=== PATIENT | female | born 1940 | race Caucasian/White ===

== ENCOUNTER 2016-10-25 10:53 | Emergency (ER) | payer OTHER ==
[~2016-10-25] VITALS: Ht 154.9 cm; Wt 68.2 kg
[~2016-10-25 10:53] MED LIST: ACETAMINOPHEN-1 EAC1 PO; ALPRAZOLAM0.25 M2 PO; ALPRAZOLAM0.25 MG PO; AMITRIPTYLINE H75 MG PO; AMITRIPTYLINE100 MG PO; ASPIR-LOW81 MG PO; Antivert PO; Ascorbic Acid,Ester- PO; COUMADIN3 M1 PO; Elavil PO; Folvite PO; GEODON20 MG PO; LOPRESSOR12.5 MG PO; LYRICA50 MG PO; MULTIVITAMIN1 EAC1 PO; Oyst-Cal D, Oscal W/ PO; PRAVACHOL40 MG PO; PRILOSEC20 MG PO; PRINIVIL10 MG PO; PROTONIX40 MG PO; SENOKOT S,PE1 TABLET PO; Skelaxin PO; THERAGRAN1 TABLET PO; Tylenol Regular Stre PO; ZESTRIL,PRINIVI10 M1 PO
[2016-10-25 14:51] LABS: POINT-OF-CARE METER ID UU13113778
[2016-10-25 16:13] LABS: HEMATOCRIT 30.8 % (36.0-46.0); MCH 22.6 PG (29.0-34.0); MCHC 30.5 G/DL (30.0-36.0); MEAN PLAT.VOLUME 8.4 uM^3 (9.5-12.4); PLATELET COUNT 305 K/uL (156-360); RBC DIS.WIDTH-CV 17.9 % (11.8-14.6); RBC DIS.WIDTH-SD 46.7 % (39-53); RED BLOOD COUNT 4.16 M/uL (3.80-5.20); WHITE BLOOD COUNT 13.6 K/uL (4.1-10.2)
[2016-10-25 16:22] LABS: CHLORIDE 111 mEq/L (99-109); POTASSIUM 3.7 mEq/L (3.7-5.4); SODIUM 141 mEq/L (136-147)
[2016-10-25 16:24] LABS: GLUCOSE 105 mg/dL (70-99)
[2016-10-25 16:25] LABS: ANION GAP 8 MEQ/L (2-14)
[2016-10-25 16:26] LABS: TOTAL BILIRUBIN 0.3 mg/dL (0.0-1.0)
[2016-10-25 16:27] LABS: ALKALINE PHOSPHATASE 88 IU/L (3-129)
[2016-10-25 16:28] LABS: GFR ESTIMATE (CALCULATED) > 59 mL/min/
[2016-10-25 16:29] LABS: UREA NITROGEN (BUN) 14 mg/dL (9-23)
[2016-10-25 16:34] LABS: TROP-I INTERPRETATION NEGATIVE; TROPONIN-I < 0.01 ng/mL (0.0-0.30)
[2016-10-25 16:57] LABS: BASOPHIL COUNT 0.1 K/uL (0-0.1); EOSINOPHIL (%) 0.8 % (0-5); EOSINOPHIL COUNT 0.1 K/uL (0-0.3); HEMATOLOGY COMMENT 1 SMEAR COMPATIBLE; IMMATURE GRANULOCYTE (%) 1.5 % (0.0-0.7); LYMPHOCYTE COUNT 1.4 K/uL (1.0-2.8); NEUTROPHIL (%) 79.7 % (45-76); NEUTROPHIL COUNT 10.9 K/uL (1.8-6.4); USER ID WCD
[2016-10-25] MEDS ORDERED: MOTRIN600 MG PO (17:52)
[2016-10-25] MEDS ORDERED: ULTRAM50 MG PO (17:52)
[2016-10-25 18:07] VITALS: BP 130/72
== END 2016-10-25 18:09 | disposition home or self-care (01) ==
LOC: EME 10:53
PROVIDERS: Emergency Medicine
DX: S80.02XA Contusion of left knee, initial encounter (principal); S00.83XA Contusion of other part of head, initial encounter; W01.198A Fall on same level from slipping, tripping and stumbling with subsequent striking against other object, initial encounter; Y92.009 Unspecified place in unspecified non-institutional (private) residence as the place of occurrence of the external cause; E78.5 Hyperlipidemia, unspecified; I10 Essential (primary) hypertension
CPT/HCPCS: 70450; 70486; 72125; 73564; 80053; 81003; 82948; 84484; 85025; 93005; 99281; 99285; J2405; J7030

== ENCOUNTER 2016-12-19 18:20 | Inpatient (IN) | payer OTHER ==
[~2016-12-19] VITALS: Ht 154.9 cm; Wt 70.5 kg
[~2016-12-19 18:20] MED LIST changes: +MOTRIN600 MG PO; +ULTRAM50 MG PO
[2016-12-19 19:50] LABS: HEMATOCRIT 24.3 % (36.0-46.0); MCHC 31.7 G/DL (30.0-36.0); MCV 72.5 FL (83-99); MEAN PLAT.VOLUME 8.7 uM^3 (9.5-12.4); NRBC (%) 0.3 /100 WBC (0-0); PLATELET COUNT 402 K/uL (156-360); RBC DIS.WIDTH-CV 19.5 % (11.8-14.6); RBC DIS.WIDTH-SD 49.9 % (39-53); RED BLOOD COUNT 3.35 M/uL (3.80-5.20); WHITE BLOOD COUNT 14.2 K/uL (4.1-10.2)
[2016-12-19 19:55] LABS: CHLORIDE 102 mEq/L (99-109); POTASSIUM 4.8 mEq/L (3.7-5.4); SODIUM 129 mEq/L (136-147)
[2016-12-19 19:56] LABS: GLUCOSE 111 mg/dL (70-99)
[2016-12-19 19:57] LABS: TROP-I INTERPRETATION NEGATIVE; TROPONIN-I < 0.01 ng/mL (0.0-0.30)
[2016-12-19 19:58] LABS: ANION GAP 10 MEQ/L (2-14)
[2016-12-19 20:00] LABS: GFR ESTIMATE (CALCULATED) 46 mL/min/
[2016-12-19 20:01] LABS: UREA NITROGEN (BUN) 24 mg/dL (9-23)
[2016-12-19 21:14] LABS: TOTAL BILIRUBIN 0.7 mg/dL (0.0-1.0)
[2016-12-19 21:15] LABS: ALKALINE PHOSPHATASE 83 IU/L (3-129)
[2016-12-19 21:17] LABS: DIRECT BILIRUBIN 0.2 mg/dL (0.0-0.3)
[2016-12-19 23:11] LABS: ADD MIUA? NO; BILIRUBIN NEGATIVE; BLOOD NEGATIVE; COLOR STRAW ((YELLOW)); GLUCOSE (STRIP) NEGATIVE; KETONES NEGATIVE; LEUKOCYTES NEGATIVE; NITRITE NEGATIVE; PROTEIN (STRIP) NEGATIVE; SPECIFIC GRAVITY 1.006 (1.000-1.030); UROBILINOGEN 0.2 MG/DL (0.2-1.0)
[2016-12-20] VITALS (11 sets, daily range): BP systolic 105–141; BP diastolic 51–69
[2016-12-20 10:06] LABS: MCH 24.4 PG (29.0-34.0); MCHC 31.8 G/DL (30.0-36.0); MEAN PLAT.VOLUME 8.4 uM^3 (9.5-12.4); NRBC (%) 0.2 /100 WBC (0-0); PLATELET COUNT 284 K/uL (156-360); RBC DIS.WIDTH-CV 19.5 % (11.8-14.6); RBC DIS.WIDTH-SD 53.1 % (39-53); WHITE BLOOD COUNT 13.9 K/uL (4.1-10.2)
[2016-12-20 10:16] LABS: MCV 76.7 FL (83-99)
[2016-12-20 10:27] LABS: TROP-I INTERPRETATION NEGATIVE; TROPONIN-I 0.01 ng/mL (0.0-0.30)
[2016-12-20 10:36] LABS: ANION GAP 12 MEQ/L (2-14); CHLORIDE 101 MEQ/L (99-109); GFR ESTIMATE (CALCULATED) > 59 mL/min/; GLUCOSE 145 mg/dL (70-99); POTASSIUM 3.6 MEQ/L (3.7-5.4); SAMPLE HEMOLYSIS CHECK 0; SAMPLE ICTERIC CHECK 0; SAMPLE LIPEMIA CHECK 0; SODIUM 133 MEQ/L (136-147); UREA NITROGEN (BUN) 23 mg/dL (9-23)
[2016-12-20 10:39] LABS: IRON 130 MCG/DL (35-150)
[2016-12-20 10:40] LABS: FERRITIN 53 NG/ML (10-291)
[2016-12-20] MEDS ORDERED: XANAX0.25 MG PO (11:06)
[2016-12-20] MEDS ORDERED: BACTRIM,SEPT1 TABLET PO (11:07)
[2016-12-20] MEDS ORDERED: AMITRIPTYLINE100 MG PO (11:08)
[2016-12-20] MEDS ORDERED: OMEPRAZOLE20 MG PO (11:08)
[2016-12-20] MEDS ORDERED: PRAVASTATIN SOD20 MG PO (11:08)
[2016-12-20] MEDS ORDERED: ASPIR 8181 M1 PO (11:09)
[2016-12-20] MEDS ORDERED: ZIPRASIDONE HCL20 MG PO (11:09)
[2016-12-20] MEDS ORDERED: PRAVASTATIN SOD40 MG PO ×2 (13:08→16:13)
[2016-12-20 15:19] LABS: TROP-I INTERPRETATION NEGATIVE; TROPONIN-I 0.01 ng/mL (0.0-0.30)
[2016-12-20] MEDS ORDERED: METOPROLOL SUCC25 MG PO (16:13)
[2016-12-20 21:01] LABS: HEMATOCRIT 34.8 % (36.0-46.0)
[2016-12-21] VITALS (7 sets, daily range): BP systolic 117–141; BP diastolic 60–88
[2016-12-21 06:06] LABS: MCH 24.7 PG (29.0-34.0); MCHC 31.7 G/DL (30.0-36.0); MCV 77.8 FL (83-99); MEAN PLAT.VOLUME 8.1 uM^3 (9.5-12.4); NRBC (%) 0.3 /100 WBC (0-0); PLATELET COUNT 276 K/uL (156-360); RBC DIS.WIDTH-CV 19.6 % (11.8-14.6); RBC DIS.WIDTH-SD 53.4 % (39-53)
[2016-12-21 06:55] LABS: ANION GAP 10 MEQ/L (2-14); CHLORIDE 101 MEQ/L (99-109); GFR ESTIMATE (CALCULATED) > 59 mL/min/; SAMPLE HEMOLYSIS CHECK 0; SAMPLE ICTERIC CHECK 0; SAMPLE LIPEMIA CHECK 0; SODIUM 133 MEQ/L (136-147); UREA NITROGEN (BUN) 20 mg/dL (9-23)
[2016-12-21 07:04] LABS: GLUCOSE 97 mg/dL (70-99); POTASSIUM 4.5 MEQ/L (3.7-5.4)
[2016-12-21 07:18] LABS: ABS NEUTROPHIL COUNT 9.2; ANISOCYTOSIS 2+; BAND NEUTROPHILS 1.7 % (0-8.0); BASOPHILS 1.7 %; EOSINOPHIL ABS CT 0; INSTRUMENT ABS NEUTROPHIL CT 7.7 K/uL; LYMPHOCYTES 9.6 % (15.0-45.0); MACROCYTES 1+; METAMYELOCYTES 1.7 %; MICROCYTOSIS 1+; OVALOCYTES 1+; PLAT.SUFFICIENCY ADEQUATE; POIKILOCYTOSIS 1+; SEG.NEUTROPHILS 81.8 % (46.0-76.0); SPHEROCYTES 1+
[2016-12-22 06:58] LABS: HEMATOCRIT 33.8 % (36.0-46.0); MCH 24.6 PG (29.0-34.0); MCHC 31.1 G/DL (30.0-36.0); MCV 79.2 FL (83-99); MEAN PLAT.VOLUME 8.2 uM^3 (9.5-12.4); NRBC (%) 0.3 /100 WBC (0-0); PLATELET COUNT 280 K/uL (156-360); RBC DIS.WIDTH-SD 55.6 % (39-53); RED BLOOD COUNT 4.27 M/uL (3.80-5.20); WHITE BLOOD COUNT 9.3 K/uL (4.1-10.2)
[2016-12-22 07:10] LABS: ANION GAP 7 MEQ/L (2-14); CHLORIDE 104 MEQ/L (99-109); GFR ESTIMATE (CALCULATED) > 59 mL/min/; GLUCOSE 116 mg/dL (70-99); POTASSIUM 4.6 MEQ/L (3.7-5.4); SAMPLE HEMOLYSIS CHECK 0; SAMPLE ICTERIC CHECK 0; SAMPLE LIPEMIA CHECK 0; SODIUM 136 MEQ/L (136-147); UREA NITROGEN (BUN) 16 mg/dL (9-23)
[2016-12-22 08:19] LABS: ABS NEUTROPHIL COUNT 7.2; EOSINOPHIL ABS CT 0; INSTRUMENT ABS NEUTROPHIL CT 6.1 K/uL
[2016-12-22 08:43] VITALS: BP 130/89
[2016-12-22 12:04] VITALS: BP 147/65
[2016-12-22 16:44] VITALS: BP 111/62
[2016-12-22 20:35] VITALS: BP 117/67
[2016-12-22 23:36] VITALS: BP 118/58
[2016-12-23 03:05] VITALS: BP 139/64
[2016-12-23 07:47] VITALS: BP 141/69
[2016-12-23 08:04] LABS: HEMATOCRIT 35.7 % (36.0-46.0); MCH 24.5 PG (29.0-34.0); MCHC 30.8 G/DL (30.0-36.0); MCV 79.5 FL (83-99); MEAN PLAT.VOLUME 8.3 uM^3 (9.5-12.4); PLATELET COUNT 288 K/uL (156-360); RBC DIS.WIDTH-CV 20.6 % (11.8-14.6); RBC DIS.WIDTH-SD 56.4 % (39-53); RED BLOOD COUNT 4.49 M/uL (3.80-5.20); WHITE BLOOD COUNT 10.9 K/uL (4.1-10.2)
[2016-12-23 08:58] LABS: EOSINOPHIL (%) 2.7 % (0-5); EOSINOPHIL COUNT 0.3 K/uL (0-0.3); IMMATURE GRANULOCYTE (%) 4.7 % (0.0-0.7); IMMATURE GRANULOCYTE COUNT 0.5 K/uL; INSTRUMENT ABS NEUTROPHIL CT 7.2 K/uL; MONOCYTE (%) 8.2 % (3-12); MONOCYTE COUNT 0.9 K/uL (0-0.8); NEUTROPHIL (%) 66.1 % (45-76); NEUTROPHIL COUNT 7.2 K/uL (1.8-6.4)
[2016-12-23 11:28] VITALS: BP 136/64
[2016-12-23 13:47] LABS: CHLORIDE 103 mEq/L (99-109); POTASSIUM 4.3 mEq/L (3.7-5.4); SODIUM 138 mEq/L (136-147)
[2016-12-23 13:49] LABS: GLUCOSE 115 mg/dL (70-99)
[2016-12-23 13:50] LABS: ANION GAP 10 MEQ/L (2-14)
[2016-12-23 13:53] LABS: GFR ESTIMATE (CALCULATED) > 59 mL/min/; UREA NITROGEN (BUN) 15 mg/dL (9-23)
[2016-12-23] MEDS ORDERED: PANTOPRAZOLE SO40 MG PO (14:59)
[2016-12-23] MEDS ORDERED: FAMOTIDINE40 MG PO (14:59)
== END 2016-12-23 15:55 | DRG 378 ==
LOC: EME 18:20 → 4EAST 12-20 02:12 → EDOF 12-20 02:12 → 4EAST 12-20 04:36 → 5SOUTH 12-23 02:46
PROVIDERS: Emergency Medicine; Hospitalist; Internal Medicine; Student in an Organized Health Care Education/Training Program
PROC: 30233N1 Transfusion of Nonautologous Red Blood Cells into Peripheral Vein, Percutaneous Approach (ICD-10-PCS; principal; 2016-12-20)
PROC: 0DB68ZX Excision of Stomach, Via Natural or Artificial Opening Endoscopic, Diagnostic (ICD-10-PCS; 2016-12-21)
DX: K25.4 Chronic or unspecified gastric ulcer with hemorrhage (principal); D62 Acute posthemorrhagic anemia; I27.2 Other secondary pulmonary hypertension; K21.0 Gastro-esophageal reflux disease with esophagitis; W10.9XXA Fall (on) (from) unspecified stairs and steps, initial encounter; Z91.81 History of falling; Y92.89 Other specified places as the place of occurrence of the external cause; M21.372 Foot drop, left foot; T14.8 Other injury of unspecified body region; R07.81 Pleurodynia; K44.9 Diaphragmatic hernia without obstruction or gangrene; K22.8 Other specified diseases of esophagus; F34.1 Dysthymic disorder; Z79.82 Long term (current) use of aspirin; I10 Essential (primary) hypertension; D72.828 Other elevated white blood cell count; G43.909 Migraine, unspecified, not intractable, without status migrainosus; E78.5 Hyperlipidemia, unspecified; M19.90 Unspecified osteoarthritis, unspecified site; R06.02 Shortness of breath; R14.0 Abdominal distension (gaseous); Z91.19 Patient's noncompliance with other medical treatment and regimen; K59.00 Constipation, unspecified; K31.9 Disease of stomach and duodenum, unspecified; F03.90 Unspecified dementia, unspecified severity, without behavioral disturbance, psychotic disturbance, mood disturbance, and anxiety; K57.30 Diverticulosis of large intestine without perforation or abscess without bleeding; Z86.73 Personal history of transient ischemic attack (TIA), and cerebral infarction without residual deficits; R42 Dizziness and giddiness; K80.20 Calculus of gallbladder without cholecystitis without obstruction; D50.9 Iron deficiency anemia, unspecified; S42.018A Nondisplaced fracture of sternal end of left clavicle, initial encounter for closed fracture; E87.1 Hypo-osmolality and hyponatremia
CPT/HCPCS: 70450; 71020; 71250; 72125; 73000; 73130; 73630; 74176; 80048; 80076; 81003; 82607; 82728; 83540; 83605; 84443; 84466; 84484; 85007; 85014; 85018; 85025; 85027; 86850; 86900; 86901; 86920; 87040; 88305; 88342 TC; 93005; 93306; 93880; 99281; 99285; C9113; J7030; P9016

== ENCOUNTER 2017-08-29 09:03 | Inpatient (IN) | payer OTHER ==
[~2017-08-29] VITALS: Ht 154.9 cm; Wt 68.0 kg
[~2017-08-29 09:03] MED LIST changes: +ASPIR 8181 M1 PO; +BACTRIM,SEPT1 TABLET PO; +FAMOTIDINE40 MG PO; +METAMUCIL MULT660 GM PO; +METOPROLOL SUCC25 MG PO; +OMEPRAZOLE20 MG PO; +PANTOPRAZOLE SO40 MG PO; +PEPCID40 MG PO; +PRAVASTATIN SOD20 MG PO; +PRAVASTATIN SOD40 MG PO; +XANAX0.25 MG PO
[2017-08-29 14:57] LABS: HEMATOCRIT 31.2 % (36.0-46.0); MCH 27.6 PG (29.0-34.0); MCHC 32.1 G/DL (30.0-36.0); MCV 86.2 FL (83-99); PLATELET COUNT 229 K/uL (156-360); RBC DIS.WIDTH-CV 15.9 % (11.8-14.6); RBC DIS.WIDTH-SD 50.6 % (39-53); WHITE BLOOD COUNT 12.5 K/uL (4.1-10.2)
[2017-08-29 15:34] LABS: RED BLOOD COUNT 3.62 M/uL (3.80-5.20)
[2017-08-29 17:33] VITALS: BP 104/52
[2017-08-29 18:38] LABS: HEMATOCRIT 37.9 % (36.0-46.0); HEMOGLOBIN 12.2 G/DL (11.9-15.5); MCV 88.6 FL (83-99)
[2017-08-29 19:05] VITALS: BP 129/58
[2017-08-29 21:22] VITALS: BP 142/72
[2017-08-30] VITALS (10 sets, daily range): BP systolic 103–135; BP diastolic 53–70
[2017-08-30 01:52] LABS: HEMATOCRIT 31.4 % (36.0-46.0); HEMOGLOBIN 10.4 G/DL (11.9-15.5); MCV 86.3 FL (83-99)
[2017-08-30 06:56] LABS: BASOPHIL (%) 0.3 % (0-1); BASOPHIL COUNT 0.1 K/uL (0-0.1); EOSINOPHIL (%) 0 % (0-5); HEMOGLOBIN 9.8 G/DL (11.9-15.5); IMMATURE GRANULOCYTE (%) 1.5 % (0.0-0.7); LYMPHOCYTE (%) 5.1 % (15-42); MCH 28.7 PG (29.0-34.0); MCHC 33.8 G/DL (30.0-36.0); MCV 84.8 FL (83-99); MONOCYTE (%) 7.5 % (3-12); MONOCYTE COUNT 1.5 K/uL (0-0.8); NEUTROPHIL (%) 85.6 % (45-76); NEUTROPHIL COUNT 16.5 K/uL (1.8-6.4); PLATELET COUNT 217 K/uL (156-360); RBC DIS.WIDTH-CV 15.7 % (11.8-14.6); RBC DIS.WIDTH-SD 48.2 % (39-53); RED BLOOD COUNT 3.42 M/uL (3.80-5.20); WHITE BLOOD COUNT 19.2 K/uL (4.1-10.2)
[2017-08-30 07:21] LABS: ALKALINE PHOSPHATASE 56 IU/L (3-129); ALT (GPT) 18 IU/L (3-49); AST (GOT) 18 IU/L (2-34); CHLORIDE 107 MEQ/L (99-109); CREATININE 0.8 MG/DL (0.6-1.3); GFR ESTIMATE (CALCULATED) > 59 mL/min/; GLUCOSE 179 mg/dL (70-99); POTASSIUM 4.5 MEQ/L (3.7-5.4); SODIUM 138 MEQ/L (136-147); TOTAL BILIRUBIN 0.6 MG/DL (0.0-1.0); TOTAL PROTEIN 4.8 G/DL (6.4-8.3); UREA NITROGEN (BUN) 15 mg/dL (9-23)
[2017-08-30 07:34] LABS: FIBRINOGEN 315 mg/dL (150-450); INTER. NORMALIZED RATIO 1.1
[2017-08-30 07:36] LABS: PTT 26.5 SEC (25-37)
[2017-08-30 12:07] LABS: HEMATOCRIT 25.4 % (36.0-46.0); HEMOGLOBIN 8.5 G/DL (11.9-15.5); MCV 86.4 FL (83-99)
[2017-08-30 18:15] LABS: HEMATOCRIT 23.5 % (36.0-46.0); HEMOGLOBIN 7.6 G/DL (11.9-15.5); MCV 87.4 FL (83-99)
[2017-08-31] VITALS (11 sets, daily range): BP systolic 109–133; BP diastolic 53–66
[2017-08-31 06:57] LABS: BASOPHIL (%) 0.3 % (0-1); EOSINOPHIL (%) 1.2 % (0-5); EOSINOPHIL COUNT 0.2 K/uL (0-0.3); HEMATOCRIT 28.4 % (36.0-46.0); HEMOGLOBIN 9.5 G/DL (11.9-15.5); IMMATURE GRANULOCYTE (%) 1.3 % (0.0-0.7); LYMPHOCYTE (%) 7.9 % (15-42); LYMPHOCYTE COUNT 1.1 K/uL (1.0-2.8); MCH 28.8 PG (29.0-34.0); MCHC 33.5 G/DL (30.0-36.0); MCV 86.1 FL (83-99); MONOCYTE (%) 8.4 % (3-12); MONOCYTE COUNT 1.2 K/uL (0-0.8); NEUTROPHIL (%) 80.9 % (45-76); NEUTROPHIL COUNT 11.2 K/uL (1.8-6.4); RBC DIS.WIDTH-CV 15.5 % (11.8-14.6); RBC DIS.WIDTH-SD 48.6 % (39-53); WHITE BLOOD COUNT 13.8 K/uL (4.1-10.2)
[2017-08-31 07:24] LABS: ABS NEUTROPHIL COUNT 12.2; BAND NEUTROPHILS 0.9 % (0-8.0); BASOPHILS 1.7 %; EOSINOPHIL ABS CT 0; LYMPHOCYTES 5.3 % (15.0-45.0); MONOCYTES 4.4 % (0-9.0); PLAT.SUFFICIENCY DECREASED; SEG.NEUTROPHILS 87.7 % (46.0-76.0); SMUDGE CELLS 3.5
[2017-08-31 07:26] LABS: PLATELET COUNT 131 K/uL (156-360)
[2017-09-01 00:08] VITALS: BP 112/62
[2017-09-01 03:37] VITALS: BP 118/93
[2017-09-01 07:02] VITALS: BP 127/58
[2017-09-01 07:16] LABS: BASOPHIL (%) 0.4 % (0-1); BASOPHIL COUNT 0.1 K/uL (0-0.1); EOSINOPHIL (%) 2.2 % (0-5); EOSINOPHIL COUNT 0.3 K/uL (0-0.3); HEMATOCRIT 31.9 % (36.0-46.0); HEMOGLOBIN 10.7 G/DL (11.9-15.5); IMMATURE GRANULOCYTE (%) 1.6 % (0.0-0.7); LYMPHOCYTE COUNT 1.7 K/uL (1.0-2.8); MCH 29.4 PG (29.0-34.0); MCHC 33.5 G/DL (30.0-36.0); MCV 87.6 FL (83-99); MONOCYTE (%) 6.3 % (3-12); NEUTROPHIL (%) 78.5 % (45-76); RBC DIS.WIDTH-CV 15.9 % (11.8-14.6); RBC DIS.WIDTH-SD 51.2 % (39-53); RED BLOOD COUNT 3.64 M/uL (3.80-5.20); WHITE BLOOD COUNT 15.3 K/uL (4.1-10.2)
[2017-09-01 08:06] LABS: PLATELET COUNT 172 K/uL (156-360)
[2017-09-01] MEDS ORDERED: COLACE100 MG PO (13:00)
[2017-09-01] MEDS ORDERED: CIPROFLOXACIN500 M1 PO (13:01)
[2017-09-01] MEDS ORDERED: HYDROCODON-ACE1 EAC7 PO (13:01)
[2017-09-01] MEDS ORDERED: METRONIDAZOLE500 MG PO (13:01)
== END 2017-09-01 15:33 | disposition home or self-care (01) | DRG 908 ==
LOC: SDC 09:03 → 2SOUTH 14:00 → ENRESERV 14:16 → SDC 15:02 → ENRESERV 16:34 → 2EAST 17:32
PROVIDERS: Obstetrics & Gynecology
PROC: 30233N1 Transfusion of Nonautologous Red Blood Cells into Peripheral Vein, Percutaneous Approach (ICD-10-PCS; principal; 2017-08-29)
PROC: 0DQP0ZZ Repair Rectum, Open Approach (ICD-10-PCS; 2017-08-29)
PROC: 0JQC0ZZ Repair Pelvic Region Subcutaneous Tissue and Fascia, Open Approach (ICD-10-PCS; 2017-08-29)
DX: L76.32 Postprocedural hematoma of skin and subcutaneous tissue following other procedure (principal); D62 Acute posthemorrhagic anemia; R33.9 Retention of urine, unspecified; K91.72 Accidental puncture and laceration of a digestive system organ or structure during other procedure; Y83.8 Other surgical procedures as the cause of abnormal reaction of the patient, or of later complication, without mention of misadventure at the time of the procedure; N81.6 Rectocele; T80.89XA Other complications following infusion, transfusion and therapeutic injection, initial encounter; I10 Essential (primary) hypertension; K21.9 Gastro-esophageal reflux disease without esophagitis; F41.9 Anxiety disorder, unspecified; F32.9 Major depressive disorder, single episode, unspecified; Z96.642 Presence of left artificial hip joint; Z86.73 Personal history of transient ischemic attack (TIA), and cerebral infarction without residual deficits; Z88.1 Allergy status to other antibiotic agents; Z90.710 Acquired absence of both cervix and uterus
CPT/HCPCS: 72192; 80053; 85014; 85018; 85025; 85027; 85384; 85610; 85730; 86850; 86900; 86901; 86920; 94799; G0378; J0330; J1170; J1580; J1940; J2250; J2270; J2405; J2550; J3010; J7050; J7120; P9016